=== PATIENT | female | born 1990 | race Caucasian/White ===

== ENCOUNTER 2017-01-16 23:20 | Emergency (ER) | payer BC ==
[2017-01-16 23:50] VITALS: BP 134/81
--- NOTE | 2017-01-17 00:03 | ED.ADGEN ---
Past History Past Medical History: Gallstones Adult General Chief Complaint Chief Complaint ".. I never get sick.. It started Tuesday night.. nausea and this pain in my stomach.. it seems to radiate to my back and Rt. 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 shoulder pain. Pt. denies intake of bad food. Patient denies any trauma. Patient denies any travel or specific ill contacts. Patient states she is normally healthy. No history of dark or tarry stools. No previous complaints of right upper quadrant pain. There is no family history of gallbladder disease. No hx. pancreatitis, or renal stones. Pt. describes pain as severe and radiates to her back and Rt. shoulder blade. Pt. has rebound to Rt. upper quadrant. Patient is 2 Term 2. Review of Systems Review of Systems Constitutional: Denies fever or chills [] Eyes: Denies change in visual acuity, redness, or eye pain [] HENT: Denies nasal congestion or sore throat [] Respiratory: Denies cough or shortness of breath [] Cardiovascular: No additional information not addressed in HPI [] GI: Complaints of epigastric abdominal pain, nausea, vomiting,. Denies bloody stools or diarrhea [] : Denies dysuria or hematuria [] Musculoskeletal: Denies back pain or joint pain [] Integument: Denies rash or skin lesions [] Neurologic: Denies headache, focal weakness or sensory changes [] Endocrine: Denies polyuria or polydipsia [] Family History Family History Noncontributory Current Medications Current Medications Current Medications Medications (Trade) Dose Ordered Sig/Araceli Start Time Stop Time Status Last Admin Dose Admin Ceftriaxone Sodium 1 gm/ Sodium Chloride 50 ml @ 100 mls/hr 1X ONCE 01/17/17 05:15 01/17/17 05:44 DC 01/17/17 05:10 100 MLS/HR Ceftriaxone Sodium (Rocephin) 1 gm STK-MED ONCE 01/17/17 05:15 01/17/17 05:16 DC Famotidine (Pepcid) 20 mg 1X ONCE 01/17/17 00:30 01/17/17 00:31 DC 01/17/17 00:29 20 MG Fentanyl Citrate (Fentanyl 2ml Vial) 100 mcg STK-MED ONCE 01/17/17 02:55 01/17/17 02:56 DC Fentanyl Citrate (Fentanyl 5ml Vial) 25 mcg 1X ONCE 01/17/17 05:15 01/17/17 05:16 DC Info (Do NOT chart on this entry -- for MONITORING) 1 each PRN DAILY PRN 01/17/17 00:30 01/19/17 00:29 Iohexol (Omnipaque 240 Mg/ml) 30 ml 1X ONCE 01/17/17 00:30 01/17/17 00:31 DC 01/17/17 02:14 30 ML Iohexol (Omnipaque 300 Mg/ml) 75 ml 1X ONCE 01/17/17 00:30 01/17/17 00:31 DC 01/17/17 02:14 75 ML Ketorolac Tromethamine (Toradol) 30 mg 1X ONCE 01/17/17 00:30 01/17/17 00:31 DC 01/17/17 00:28 30 MG Lactated Ringer's 1,000 ml @ 1,000 mls/hr Q1H 01/17/17 00:30 01/17/17 00:30 DC 01/17/17 00:28 1,000 MLS/HR Magnesium Hydroxide (Milk Of Magnesia) 2,400 mg 1X ONCE 01/17/17 03:00 01/17/17 03:14 DC Metronidazole 100 ml @ 200 mls/hr 1X ONCE 01/17/17 05:00 01/17/17 05:29 DC 01/17/17 05:00 200 MLS/HR Morphine Sulfate (Morphine 10mg Syringe) 10 mg 1X ONCE 01/17/17 02:15 01/17/17 03:14 DC 01/17/17 02:20 10 MG Ondansetron HCl (Zofran) 8 mg 1X ONCE 01/17/17 05:15 01/17/17 05:16 DC Sodium Chloride 50 ml @ As Directed STK-MED ONCE 01/17/17 05:15 01/17/17 05:16 DC See nursing for home meds Allergies Allergies Allergies Coded Allergies Type Severity Reaction Last Updated Verified No Known Drug Allergies 01/17/17 No No known drug allergies Physical Exam Physical Exam Constitutional: Well developed, well nourished, in moderate distress, non-toxic appearance. [] HENT: Normocephalic, atraumatic, bilateral external ears normal, oropharynx moist, no oral exudates, nose normal. [] Eyes: PERRLA, EOMI, conjunctiva normal, no discharge. [] Neck: Normal range of motion, no tenderness, supple, no stridor. [] Cardiovascular:Heart rate regular rhythm, no murmur [] Lungs & Thorax: Bilateral breath sounds clear to auscultation []Lt. breast scar - biopsy. Abdomen: Bowel sounds normal, soft, epigastric and right upper quadrant tenderness as per HPI. , no masses, no pulsatile masses Declines rectal and vaginal exam this time. Mild distention. Skin: Warm, dry, no erythema, no rash. [] Back: No tenderness, no CVA tenderness. [] Extremities: No tenderness, no cyanosis, no clubbing, ROM intact, no edema. No psoas or obturator sign Neurologic: Alert and oriented X 3, normal motor function, normal sensory function, no focal deficits noted. [] Psychologic: Affect anxious, judgement normal, mood normal. [] Current Patient Data Vital Signs Vital Signs Date Time Temp Pulse Resp B/P (MAP) Pulse Ox O2 Delivery O2 Flow Rate FiO2 01/17/17 02:20 24 01/16/17 23:50 97.3 68 97 Room Air Lab Results Laboratory Tests Test 01/16/17 23:31 01/17/17 00:04 Urine Collection Type Unknown Urine Color Yellow Urine Clarity Clear Urine pH 6.5 Urine Specific [place] 1.020 Urine Protein Neg (NEG-TRACE) Urine Glucose (UA) Neg mg/dL (NEG) Urine Ketones (Stick) Neg mg/dL (NEG) Urine Blood Neg (NEG) Urine Nitrite Neg (NEG) Urine Bilirubin Neg (NEG) Urine Urobilinogen Dipstick 0.2 mg/dL (0.2 mg/dL) Urine Leukocyte Esterase Neg (NEG) Urine RBC 0 /HPF (0-2) Urine WBC 1-4 /HPF (0-4) Urine Squamous Epithelial Cells Few /LPF Urine Bacteria Few /HPF (0-FEW) Urine Test Negative (NEG) Urine Opiates Screen Neg (NEG) Urine Methadone Screen Neg (NEG) Urine Barbiturates Neg (NEG) Urine Phencyclidine Screen Neg (NEG) Urine Amphetamine/Methamphetamine Neg (NEG) Urine Benzodiazepines Screen Neg (NEG) Urine Cocaine Screen Pos (NEG) Urine Cannabinoids Screen Pos (NEG) Urine Ethyl Alcohol Neg (NEG) White Blood Count 9.7 x10^3/uL (4.0-11.0) Red Blood Count 4.71 x10^6/uL (3.50-5.40) Hemoglobin 13.6 g/dL (12.0-15.5) Hematocrit 39.7 % (36.0-47.0) Mean Corpuscular Volume 84 fL (79-100) Mean Corpuscular Hemoglobin 29 pg (25-35) Mean Corpuscular Hemoglobin Concent 34 g/dL (31-37) Red Cell Distribution Width 13.6 % (11.5-14.5) Platelet Count 258 x10^3/uL (140-400) Neutrophils (%) (Auto) 59 % (31-73) Lymphocytes (%) (Auto) 33 % (24-48) Monocytes (%) (Auto) 6 % (0-9) Eosinophils (%) (Auto) 2 % (0-3) Basophils (%) (Auto) 1 % (0-3) Neutrophils # (Auto) 5.8 x10^3uL (1.8-7.7) Lymphocytes # (Auto) 3.2 x10^3/uL (1.0-4.8) Monocytes # (Auto) 0.5 x10^3/uL (0.0-1.1) Eosinophils # (Auto) 0.2 x10^3/uL (0.0-0.7) Basophils # (Auto) 0.1 x10^3/uL (0.0-0.2) Prothrombin Time 10.2 SEC (9.4-11.4) Prothrombin Time INR 1.0 (0.9-1.1) PTT 25 SEC (23-33) Sodium Level 140 mmol/L (136-145) Potassium Level 3.5 mmol/L (3.5-5.1) Chloride Level 104 mmol/L (98-107) Carbon Dioxide Level 26 mmol/L (21-32) Anion Gap 10 (6-14) Blood Urea Nitrogen 14 mg/dL (7-20) Creatinine 0.9 mg/dL (0.6-1.0) Estimated GFR (Cockcroft-Gault) 75.7 BUN/Creatinine Ratio 16 (6-20) Glucose Level 106 mg/dL (70-99) H Calcium Level 9.1 mg/dL (8.5-10.1) Total Bilirubin 0.5 mg/dL (0.2-1.0) Direct Bilirubin 0.1 mg/dL (0.0-0.2) Aspartate Amino Transferase (AST) 14 U/L (15-37) L Alanine Aminotransferase (ALT) 17 U/L (14-59) Alkaline Phosphatase 80 U/L (46-116) Troponin I Quantitative < 0.017 ng/mL (0-0.055) Total Protein 7.5 g/dL (6.4-8.2) Albumin 4.0 g/dL (3.4-5.0) Albumin/Globulin Ratio 1.1 (1.0-1.7) Lipase 144 U/L (73-393) EKG EKG My interpretation of EKG shows as sinus 61, some nonspecific contour changes in anterior septal area. But no findings of acute STEMI with contralateral changes.[] Radiology/Procedures Radiology/Procedures My interpretation of acute abdomen film shows no free air under the diaphragm. No acute cardiopulmonary findings. Increased stool. CT findings suggestive of thickened gallbladder wall. No findings acute appendicitis. Ultrasound shows thickened gallbladder wall with stones.[] Course & Med Decision Making Course & Med Decision Making Pertinent Labs and Imaging studies reviewed. (See chart for details). Discussed presentation, testing and treatment plan with Dr. Sands, and Dr. Hu- Will transfer to [facility]. Possible Cholecystectomy. [] Final Impression Final Impression 1. Abdomen pain 2. Nausea[] 3. Cholelithiasis and cholecystitis 4. Constipation 5. + Cocaine and MJ urine screen Problems: Dragon Disclaimer Dragon Disclaimer This electronic medical record was generated, in whole or in part, using a voice recognition dictation system. AUBREY PARHAM MD Jan 17, 2017 00:03
[2017-01-17] MEDS ORDERED: FAMOTIDINE 20 MG/2 ML VIAL IVP ONE (00:30)
[2017-01-17] MEDS ORDERED: ONDANSETRON PF 4 MG/2 ML VIAL. IV ONE ×2 (00:30→05:15)
[2017-01-17] MEDS ORDERED: IOHEXOL 240 MG/ML 50ML VIAL. PO ONE (00:30)
[2017-01-17] MEDS ORDERED: KETOROLAC 30 MG/ML VIAL. IV ONE (00:30)
[2017-01-17] MEDS ORDERED: IOHEXOL 300 MG/ML 75 ML VIAL. IV ONE (00:30)
[2017-01-17] MEDS ORDERED: CONTRAST GIVEN MC PRN (00:30)
[2017-01-17] MEDS ORDERED: IV RINGERS SOLUTION,LACTATED 1,000 ML IV SCH (00:30)
[2017-01-17 00:34] LABS: BASO # 0.1 x10^3/uL (0.0-0.2); BASO % 1 % (0-3); EOS # 0.2 x10^3/uL (0.0-0.7); EOS % 2 % (0-3); HEMATOCRIT 39.7 % (36.0-47.0); HEMOGLOBIN 13.6 g/dL (12.0-15.5); LYMPH # 3.2 x10^3/uL (1.0-4.8); LYMPH % 33 % (24-48); MEAN CORPUSCULAR HEMOGLOBIN 29 pg (25-35); MEAN CORPUSCULAR HGB CONC 34 g/dL (31-37); MEAN CORPUSCULAR VOLUME 84 fL (79-100); MONO # 0.5 x10^3/uL (0.0-1.1); MONO % 6 % (0-9); NEUT # 5.8 x10^3uL (1.8-7.7); NEUT % 59 % (31-73); PLATELET COUNT 258 x10^3/uL (140-400); RED BLOOD COUNT 4.71 x10^6/uL (3.50-5.40); RED CELL DISTRIBUTION WIDTH 13.6 % (11.5-14.5); WHITE BLOOD COUNT 9.7 x10^3/uL (4.0-11.0)
[2017-01-17 01:00] LABS: BACTERIA,URINE FEW /HPF (0-FEW); BILIRUBIN,URINE NEG (NEG); CLARITY,URINE CLEAR; COLOR,URINE YELLOW; GLUCOSE,URINE NEG (NEG); NITRITE,URINE NEG (NEG); RBC,URINE 0 /HPF (0-2); SQUAMOUS EPITHELIAL CELL,UR FEW /LPF; UROBILINOGEN,URINE 0.2 mg/dL (0.2 mg/dL)
[2017-01-17 01:01] LABS: U PREG PATIENT NEGATIVE (NEG)
[2017-01-17 01:39] LABS: BARBITURATES NEG (NEG); BENZODIAZEPINES NEG (NEG); CANNABINOIDS POS (NEG); COCAINE POS (NEG); METHADONE NEG (NEG); OPIATES NEG (NEG); PHENCYCLIDINE NEG (NEG)
[2017-01-17 01:44] LABS: AMPHETAMINE/METHAMPHETAMINE NEG (NEG)
[2017-01-17 01:47] LABS: ALBUMIN/GLOBULIN RATIO 1.1 (1.0-1.7); CALCIUM 9.1 mg/dL (8.5-10.1); CREATININE 0.9 mg/dL (0.6-1.0); DIRECT BILIRUBIN 0.1 mg/dL (0.0-0.2); GFR 75.7; POTASSIUM 3.5 mmol/L (3.5-5.1); TOTAL BILIRUBIN 0.5 mg/dL (0.2-1.0); TOTAL PROTEIN 7.5 g/dL (6.4-8.2)
[2017-01-17] MEDS ORDERED: MORPHINE SULFATE 10 MG/ML SYRINGE. SQ ONE (02:15)
[2017-01-17] MEDS ORDERED: fentaNYL PF 100 MCG/2 ML VIAL ONE (02:55)
[2017-01-17] MEDS ORDERED: MAGNESIUM HYDROXIDE 2,400 MG/30 ML ORAL.SUSP. PO ONE (03:00)
--- NOTE | 2017-01-17 03:15 | RAD ---
INDICATION: [id number] Omni 300 75cc: Abdomen pain with nausea and vomiting x 2 days. No priors. COMPARISON: None. TECHNIQUE: Axial CT images were obtained through the abdomen and pelvis with intravenous contrast. One or more of the following individualized dose reduction techniques were utilized for this examination: 1. Automated exposure control; 2. Adjustment of the mA and/or kV according to patient size; 3. Use of iterative reconstruction technique. FINDINGS: Chest Base: Partially imaged without gross abnormality. Vessels: No abdominal aortic aneurysm. Liver/Biliary: Mild periportal edema. Pancreas: No peripancreatic edema. Spleen: Normal. Kidneys/Adrenal: Mildly prominent right extrarenal pelvis without definite radiopaque obstructive ureter stone. There is some distention of the right ureter. No left-sided hydronephrosis. Bladder: No definite adjacent inflammation. GI: No free air. No bowel dilation to suggest obstruction. Intrauterine device is seen with tip in the lower uterine segment. The appendix does not appear grossly inflamed. IMPRESSION: 1. No evidence of bowel obstruction or appendicitis. 2. Mild pericholecystic edema. Could be related to hydration status but would correlate with symptoms within the region to ensure that there is not a pathologic cause such as biliary or hepatic disease. 3. Mild distention of the right renal pelvis as well as portion of the right ureter without a radiopaque obstructive right ureter stone seen. Electronically signed by: Cortez Garcia MD (01/17/2017 3:13 AM) [facility]
--- NOTE | 2017-01-17 04:44 | RAD ---
INDICATION : RUQ PAIN COMPARISON: CT from earlier same day TECHNIQUE: Multiple ultrasound images obtained through the abdomen in grayscale and color. FINDINGS: Liver: Echotexture within normal limits in visualized portions of liver. Gallbladder: Gallstones are visualized. Gallbladder wall measures up to 5 mm. IVC: Partially distended at level of liver. Common Bile Duct: Not dilated. Pancreas: Only partially seen secondary to bowel gas obscuring. Right Kidney: No hydronephrosis. IMPRESSION: 1. Gallstones are identified without common bile duct dilation. The gallbladder wall appears normal in thickness in some regions and mildly thickened in other regions. Differential considerations include regions of contraction, reactive to adjacent hepatic disease, systemic process such as hypoproteinemia or primary gallbladder inflammation. If there is clinical concern for cholecystitis it may be helpful to obtain a nuclear hepatobiliary scan to further evaluate given these findings. Electronically signed by: Cortez Garcia MD (01/17/2017 4:40 AM) [facility]
[2017-01-17] MEDS ORDERED: IV NORMAL SALINE 50ML 50 ML ONE (05:15)
[2017-01-17] MEDS ORDERED: cefTRIAXone SODIUM 1 GM VIAL IV ONE (05:15)
[2017-01-17] MEDS ORDERED: fentaNYL PF 250 MCG/5 ML VIAL IV ONE (05:15)
--- NOTE | 2017-01-17 07:49 | RAD ---
Acute abdomen series, 3 views, 01/17/2017: History: Abdominal pain, nausea and vomiting There is increased stool in the colon. The abdominal gas pattern is otherwise unremarkable. No free air seen in the abdomen. There is no evidence of organomegaly. An IUD is projected over the pelvis near the midline. A lower pelvic calcification on the right is probably a phlebolith. The heart size is normal. The lungs are clear. There is no evidence of pleural fluid. IMPRESSION: 1. An IUD is in place. 2. Increased stool in the colon.
--- NOTE | 2017-01-18 07:14 | EKG ---
[address] [address] Test Date: 2017-01-17 Test Time: 05:02:30 Pat Name: ANDREW SIMEON Department: Room: Gender: F Animal Assistant: : 1990 Requested By: AUBREY PARHAM Order Number: [id number] Reading MD: Ant Hernandez Measurements Intervals [place] Rate: 61 P: 0 [place]: 124 QRS: 32 QRSD: 74 T: 18 QT: 406 QTc: 410 Interpretive Statements SINUS RHYTHM Electronically Signed On 01-24-2017 10:01:38 CDT by Ant Hernandez
== END 2017-01-17 06:06 | disposition home or self-care (01) ==
LOC: ER 23:20
DX: K80.10 Calculus of gallbladder with chronic cholecystitis without obstruction (principal); K59.00 Constipation, unspecified; F14.10 Cocaine abuse, uncomplicated; F12.10 Cannabis abuse, uncomplicated
CPT/HCPCS: 36415; 74022; 74177; 76705; 80053; 80076; 80307; 81001; 81025; 83690; 84484; 85025; 85610; 85730; 93005; 96361; 96365; 96368; 96372; 96375; 96376; 99285; J0696; J1885; J2270; J2405; J3490; J7120; Q9966; Q9967; S0028; G0479

== ENCOUNTER 2017-02-08 22:30 | Emergency (ER) | payer BC ==
--- NOTE | 2017-02-08 23:14 | PHYS DOC ---
Past History Past Medical History: Gallstones Past Surgical History: No Surgical History Alcohol Use: None Drug Use: None Adult General Chief Complaint Chief Complaint: ABDOMINAL PAIN HPI HPI Patient is a 26 year old female who presents with epigastric pain sharp stabbing in nature and radiates her back. She states is the exact same pain she had before she had her gallbladder removed by Dr. Sands 1 month ago. She states tonight she ate baked chicken and drank a bourbon and Coke about one hour after eating developed the same exact pain. She states she felt nauseated and the pain was a 9 out 10. Review of Systems Review of Systems Constitutional: Denies fever or chills [] Eyes: Denies change in visual acuity, redness, or eye pain [] HENT: Denies nasal congestion or sore throat [] Respiratory: Denies cough or shortness of breath [] Cardiovascular: No additional information not addressed in HPI [] GI: Positive for abdominal pain, nausea, denies any vomiting, bloody stools or diarrhea [] : Denies dysuria or hematuria [] Musculoskeletal: Denies back pain or joint pain [] Integument: Denies rash or skin lesions [] Neurologic: Denies headache, focal weakness or sensory changes [] Endocrine: Denies polyuria or polydipsia [] Allergies Allergies Allergies Coded Allergies Type Severity Reaction Last Updated Verified No Known Drug Allergies 01/17/17 No Physical Exam Physical Exam Constitutional: Well developed, well nourished, no acute distress, non-toxic appearance. [] HENT: Normocephalic, atraumatic, bilateral external ears normal, oropharynx moist, no oral exudates, nose normal. [] Eyes: PERRLA, EOMI, conjunctiva normal, no discharge. [] Neck: Normal range of motion, no tenderness, supple, no stridor. [] Cardiovascular:Heart rate regular rhythm, no murmur [] Lungs & Thorax: Bilateral breath sounds clear to auscultation [] Abdomen: Bowel sounds normal, soft, palpation epigastric area without any rebound or guarding, no masses, no pulsatile masses. Well-healed laparoscopic incision scars without any erythema or tenderness over the scars Skin: Warm, dry, no erythema, no rash. [] Back: No tenderness, no CVA tenderness. [] Extremities: No tenderness, no cyanosis, no clubbing, ROM intact, no edema. [] Neurologic: Alert and oriented X 3, normal motor function, normal sensory function, no focal deficits noted. [] Psychologic: Affect normal, judgement normal, mood normal. [] EKG EKG [] Radiology/Procedures Radiology/Procedures [] Impressions: Epigastric abdominal pain Course & Med Decision Making Course & Med Decision Making Pertinent Labs and Imaging studies reviewed. (See chart for details) She received a GI cocktail and her pain went from a 9 down to a 2. I suspect this is likely epigastric pain from gastritis or another process. We'll recommend her being discharged home with [id number] Pepcid or Zantac. I spoke with Dr. Rooney who is on-call for Dr. Sands who recommends patient follow up as an outpatient. Patient is agreeable plan is being discharged in stable condition this time. Dragon Disclaimer Dragon Disclaimer This chart was dictated in whole or in part using Voice Recognition software in a busy, high-work load, and often noisy Emergency Department environment. It may contain unintended and wholly unrecognized errors or omissions. Departure Departure: Impression: Primary Impression: Epigastric pain Disposition: HOME, SELF-CARE Condition: STABLE Referrals: PCP,NO (PCP) Patient Instructions: Abdominal Pain Additional Instructions: Your labs do not show any acute abnormality's. Your pain was in the epigastric area. Your pain resolved with a GI cocktail which consisted Tylenol, Maalox, lidocaine. I suspect her pain is likely due to gastritis or an inflammation of your stomach or esophagus. You can start taking Pepcid or Zantac that you can purchase [id number] as an acid catrachita. You should follow-up with your primary care physician within the next week. Return ER for severe pain, uncontrolled nausea vomiting, or other concerns. You should likely avoid alcohol until your stomach is fully healed. I spoke with Dr. Rooney who is covering for Dr Sands; he wants you to follow-up with Dr. Sands. Please call Dr. Sands's office and schedule another follow-up appointment. HYUN BANG MD Feb 08, 2017 23:14
[2017-02-08] MEDS ORDERED: MORPHINE SULFATE 4 MG/ML DISP.SYRIN. IV/SQ PRN (23:15)
[2017-02-08] MEDS ORDERED: IV NORMAL SALINE 1,000ML 1,000 ML IV SCH (23:30)
[2017-02-08] MEDS ORDERED: ONDANSETRON PF 4 MG/2 ML VIAL. IV ONE (23:30)
[2017-02-08 23:31] LABS: BASO % 0 % (0-3); EOS # 0.2 x10^3/uL (0.0-0.7); EOS % 3 % (0-3); HEMATOCRIT 39.1 % (36.0-47.0); HEMOGLOBIN 13.4 g/dL (12.0-15.5); LYMPH # 2.4 x10^3/uL (1.0-4.8); LYMPH % 36 % (24-48); MEAN CORPUSCULAR HEMOGLOBIN 29 pg (25-35); MEAN CORPUSCULAR HGB CONC 34 g/dL (31-37); MEAN CORPUSCULAR VOLUME 84 fL (79-100); MONO # 0.4 x10^3/uL (0.0-1.1); MONO % 6 % (0-9); NEUT # 3.6 x10^3uL (1.8-7.7); NEUT % 55 % (31-73); PLATELET COUNT 274 x10^3/uL (140-400); RED BLOOD COUNT 4.67 x10^6/uL (3.50-5.40); RED CELL DISTRIBUTION WIDTH 13.3 % (11.5-14.5); WHITE BLOOD COUNT 6.6 x10^3/uL (4.0-11.0)
[2017-02-08 23:38] LABS: BACTERIA,URINE FEW /HPF (0-FEW); BILIRUBIN,URINE NEG (NEG); CLARITY,URINE CLEAR; COLOR,URINE YELLOW; GLUCOSE,URINE NEG (NEG); NITRITE,URINE NEG (NEG); RBC,URINE 0 /HPF (0-2); SQUAMOUS EPITHELIAL CELL,UR FEW /LPF; UROBILINOGEN,URINE 0.2 mg/dL (0.2 mg/dL); WBC,URINE OCC /HPF (0-4)
[2017-02-08 23:55] LABS: ALBUMIN 3.9 g/dL (3.4-5.0); ALK PHOS 86 U/L (46-116); ALT (SGPT) 55 U/L (14-59); ANION GAP 9 (6-14); AST (SGOT) 45 U/L (15-37); BLOOD UREA NITROGEN 11 mg/dL (7-20); CALCIUM 8.5 mg/dL (8.5-10.1); CARBON DIOXIDE 28 mmol/L (21-32); CHLORIDE 104 mmol/L (98-107); CREATINE KINASE 133 U/L (26-192); CREATININE 0.7 mg/dL (0.6-1.0); DIRECT BILIRUBIN 0.1 mg/dL (0.0-0.2); GFR 101.1; GLUCOSE 93 mg/dL (70-99); LIPASE 140 U/L (73-393); POTASSIUM 3.3 mmol/L (3.5-5.1); SODIUM 141 mmol/L (136-145); TOTAL BILIRUBIN 0.3 mg/dL (0.2-1.0); TOTAL PROTEIN 7.6 g/dL (6.4-8.2)
[2017-02-09] MEDS ORDERED: LIDO:MAALOX 1:1 20 ML SINGLE DOSE PO ONE (00:45)
[2017-02-09 01:30] VITALS: BP 103/56
[2017-02-09] MEDS ORDERED: FAMOTIDINE 20 MG TABLET PO ONE (01:30)
== END 2017-02-09 01:35 | disposition home or self-care (01) ==
LOC: ER 22:30
DX: R11.0 Nausea (principal); R10.13 Epigastric pain
CPT/HCPCS: 36415; 80048; 80076; 81001; 82553; 83690; 85025; 96361; 96374; 96375; 99284; J2270; J2405; J7030

== ENCOUNTER 2017-04-09 15:19 | Emergency (ER) | payer BC ==
[2017-04-09 15:23] VITALS: BP 103/56
[2017-04-09] MEDS ORDERED: ONDANSETRON PF 4 MG/2 ML VIAL. IV ONE (16:30)
[2017-04-09 16:42] LABS: BASO % 0 % (0-3); EOS # 0.1 x10^3/uL (0.0-0.7); EOS % 1 % (0-3); HEMATOCRIT 41.8 % (36.0-47.0); HEMOGLOBIN 14.3 g/dL (12.0-15.5); LYMPH # 0.9 x10^3/uL (1.0-4.8); LYMPH % 6 % (24-48); MEAN CORPUSCULAR HEMOGLOBIN 29 pg (25-35); MEAN CORPUSCULAR HGB CONC 34 g/dL (31-37); MEAN CORPUSCULAR VOLUME 85 fL (79-100); MONO # 0.5 x10^3/uL (0.0-1.1); MONO % 3 % (0-9); NEUT # 13.3 x10^3uL (1.8-7.7); NEUT % 90 % (31-73); PLATELET COUNT 245 x10^3/uL (140-400); RED CELL DISTRIBUTION WIDTH 14.2 % (11.5-14.5); WHITE BLOOD COUNT 14.8 x10^3/uL (4.0-11.0)
[2017-04-09 16:47] LABS: ALBUMIN/GLOBULIN RATIO 1.1 (1.0-1.7); CALCIUM 8.8 mg/dL (8.5-10.1); CREATININE 0.6 mg/dL (0.6-1.0); GFR 120.8; POTASSIUM 3.4 mmol/L (3.5-5.1); TOTAL BILIRUBIN 1.3 mg/dL (0.2-1.0); TOTAL PROTEIN 7.8 g/dL (6.4-8.2)
[2017-04-09] MEDS ORDERED: ONDA4TAB10 SL (18:22)
[2017-04-09] MEDS ORDERED: ACET-704 PO (18:22)
--- NOTE | 2017-04-09 18:22 | PHYS DOC ---
Past History Past Medical History: Gallstones Past Surgical History: Cholecystectomy Alcohol Use: None Drug Use: None Adult General Chief Complaint Chief Complaint: ABDOMINAL PAIN HPI HPI Patient is a [26] year old [female] who presents with [abdominal pain] 26-year-old patient with history of laparoscopic cholecystectomy in January 2017 complaining of right upper quadrant pain as a sharp pain with radiation to the back and associated with nausea and 2 episodes of vomiting that started 1 hours after eating this afternoon as a constant pain and ataxia pain 8/ ..patient states she had the same pain before her surgery and once after her surgery without special diagnosis. Review of Systems Review of Systems Constitutional: Denies fever or chills [] Eyes: Denies change in visual acuity, redness, or eye pain [] HENT: Denies nasal congestion or sore throat [] Respiratory: Denies cough or shortness of breath [] Cardiovascular: No additional information not addressed in HPI [] GI: Reports abdominal pain, nausea, vomiting : Denies dysuria or hematuria [] Musculoskeletal: Denies back pain or joint pain [] Integument: Denies rash or skin lesions [] Neurologic: Denies headache, focal weakness or sensory changes [] Endocrine: Denies polyuria or polydipsia [] All other systems were reviewed and found to be within normal limits, except as documented in this note. Current Medications Current Medications Current Medications Medications (Trade) Dose Ordered Sig/Araceli Start Time Stop Time Status Last Admin Dose Admin Fentanyl Citrate (Fentanyl 2ml Vial) 50 mcg 1X ONCE 04/09/17 16:30 04/09/17 16:31 DC 04/09/17 16:32 50 MCG Ondansetron HCl (Zofran) 4 mg 1X ONCE 04/09/17 16:30 04/09/17 16:31 DC 04/09/17 16:31 4 MG Allergies Allergies Allergies Coded Allergies Type Severity Reaction Last Updated Verified No Known Drug Allergies 01/17/17 No Physical Exam Physical Exam Constitutional: Well developed, well nourished, moderate distress, non-toxic appearance. [] HENT: Normocephalic, atraumatic, bilateral external ears normal, oropharynx moist, no oral exudates, nose normal. [] Eyes: PERRLA, EOMI, conjunctiva normal, no discharge. [] Neck: Normal range of motion, no tenderness, supple, no stridor. [] Cardiovascular:Heart rate regular rhythm, no murmur [] Lungs & Thorax: Bilateral breath sounds clear to auscultation [] Abdomen: Bowel sounds normal, soft, mild tenderness in RUQ, no masses, no pulsatile masses. [] Skin: Warm, dry, no erythema, no rash. [] Back: No tenderness, no CVA tenderness. [] Extremities: No tenderness, no cyanosis, no clubbing, ROM intact, no edema. [] Neurologic: Alert and oriented X 3, normal motor function, normal sensory function, no focal deficits noted. [] Psychologic: Affect normal, judgement normal, mood normal. [] Current Patient Data Vital Signs Vital Signs Date Time Temp Pulse Resp B/P (MAP) Pulse Ox O2 Delivery O2 Flow Rate FiO2 04/09/17 17:14 16 100 04/09/17 15:23 98.3 100 Room Air Lab Results Laboratory Tests Test 04/09/17 16:11 White Blood Count 14.8 x10^3/uL (4.0-11.0) H Red Blood Count 4.90 x10^6/uL (3.50-5.40) Hemoglobin 14.3 g/dL (12.0-15.5) Hematocrit 41.8 % (36.0-47.0) Mean Corpuscular Volume 85 fL (79-100) Mean Corpuscular Hemoglobin 29 pg (25-35) Mean Corpuscular Hemoglobin Concent 34 g/dL (31-37) Red Cell Distribution Width 14.2 % (11.5-14.5) Platelet Count 245 x10^3/uL (140-400) Neutrophils (%) (Auto) 90 % (31-73) H Lymphocytes (%) (Auto) 6 % (24-48) L Monocytes (%) (Auto) 3 % (0-9) Eosinophils (%) (Auto) 1 % (0-3) Basophils (%) (Auto) 0 % (0-3) Neutrophils # (Auto) 13.3 x10^3uL (1.8-7.7) H Lymphocytes # (Auto) 0.9 x10^3/uL (1.0-4.8) L Monocytes # (Auto) 0.5 x10^3/uL (0.0-1.1) Eosinophils # (Auto) 0.1 x10^3/uL (0.0-0.7) Basophils # (Auto) 0.0 x10^3/uL (0.0-0.2) Sodium Level 140 mmol/L (136-145) Potassium Level 3.4 mmol/L (3.5-5.1) L Chloride Level 104 mmol/L (98-107) Carbon Dioxide Level 24 mmol/L (21-32) Anion Gap 12 (6-14) Blood Urea Nitrogen 16 mg/dL (7-20) Creatinine 0.6 mg/dL (0.6-1.0) Estimated GFR (Cockcroft-Gault) 120.8 BUN/Creatinine Ratio 27 (6-20) H Glucose Level 96 mg/dL (70-99) Calcium Level 8.8 mg/dL (8.5-10.1) Total Bilirubin 1.3 mg/dL (0.2-1.0) H Aspartate Amino Transferase (AST) 97 U/L (15-37) H Alanine Aminotransferase (ALT) 53 U/L (14-59) Alkaline Phosphatase 92 U/L (46-116) Total Protein 7.8 g/dL (6.4-8.2) Albumin 4.0 g/dL (3.4-5.0) Albumin/Globulin Ratio 1.1 (1.0-1.7) EKG EKG [] Radiology/Procedures Radiology/Procedures [] Course & Med Decision Making Course & Med Decision Making Pertinent Labs reviewed. (See chart for details) Evaluation of the patient showed 26-year-old patient with episodes of right upper quadrant pain after recent cholecystectomy.] Patient for definitive treatment is IV fluids and Zofran and fentanyl. was unremarkable and patient instructed to follow up with her surgeon for possible referral to GI specialist for possible common bile duct retained stone. Dragon Disclaimer Dragon Disclaimer This electronic medical record was generated, in whole or in part, using a voice recognition dictation system. Departure Departure: Impression: Primary Impression: Right upper quadrant abdominal pain Disposition: HOME, SELF-CARE (At 1820) Condition: IMPROVED Referrals: PCP,NO (PCP) Patient Instructions: Abdominal Pain, Biliary Colic Additional Instructions: Follow-up with your physician in 2-3 days for referral to GI specialist for more evaluation of liver and common bile duct Scripts Acetaminophen With Codeine (TYLENOL WITH CODEINE #3 TABLET) 1 Each Tablet 1 TAB PO Q6HRS, #30 TAB Prov: NADINE TRAVIS MD 04/09/17 Ondansetron (ZOFRAN ODT) 4 Mg Tab.rapdis 1 TAB SL Q8HRS, #15 TAB Prov: NADINE TRAVIS MD 04/09/17 NADINE TRAVIS MD Apr 09, 2017 18:22
[2017-04-09] MEDS ORDERED: ACETAMINOPHEN/CODEINE 300/30MG 4TABLET STARTPACK. PO ONE (18:45)
== END 2017-04-09 19:00 | disposition home or self-care (01) ==
LOC: ER 15:19
DX: R10.11 Right upper quadrant pain (principal); R11.2 Nausea with vomiting, unspecified; R27.0 Ataxia, unspecified; Z90.49 Acquired absence of other specified parts of digestive tract
CPT/HCPCS: 36415; 80053; 85025; 96374; 96375; 99284; J2405; J3010

== ENCOUNTER 2018-03-27 19:24 | Emergency (ER) | payer BC ==
[~2018-03-27] VITALS: Ht 165.1 cm; Wt 70.3 kg
[~2018-03-27 19:24] MED LIST: ACET-704 PO; ONDA4TAB10 SL
[2018-03-27 19:34] VITALS: BP 124/87
[2018-03-27] MEDS ORDERED: AMOX1TAB61 PO (20:04)
[2018-03-27] MEDS ORDERED: PRED20TA PO (20:04)
--- NOTE | 2018-03-27 20:06 | PHYS DOC ---
Adult General Chief Complaint Chief Complaint Sore throat HPI HPI 27 years old female presented to the emergency department with a sore throat on the right side she was seen and evaluated the the serious [facility] advised to come to the emergency department for possible abscess patient denies any fever no chills no neck pain no headache Review of Systems Review of Systems Constitutional: Denies fever or chills [] Eyes: Denies change in visual acuity, redness, or eye pain [] HENT: Denies nasal congestion or sore throat [] Respiratory: Denies cough or shortness of breath [] Cardiovascular: No additional information not addressed in HPI [] GI: Denies abdominal pain, nausea, vomiting, bloody stools or diarrhea [] : Denies dysuria or hematuria [] Musculoskeletal: Denies back pain or joint pain [] Integument: Denies rash or skin lesions [] Neurologic: Denies headache, focal weakness or sensory changes [] Endocrine: Denies polyuria or polydipsia [] All other systems were reviewed and found to be within normal limits, except as documented in this note. Allergies Allergies Allergies Coded Allergies Type Severity Reaction Last Updated Verified No Known Drug Allergies 01/17/17 No Physical Exam Physical Exam Constitutional: Well developed, well nourished, no acute distress, non-toxic appearance. [] HENT: Normocephalic, atraumatic, bilateral external ears normal, pharyngeal erythema the pus on the right side, no oral exudates, nose normal. [] Eyes: PERRLA, EOMI, conjunctiva normal, no discharge. [] Neck: Normal range of motion, no tenderness, supple, no stridor. [] Cardiovascular:Heart rate regular rhythm, no murmur [] Lungs & Thorax: Bilateral breath sounds clear to auscultation [] Abdomen: Bowel sounds normal, soft, no tenderness, no masses, no pulsatile masses. [] Skin: Warm, dry, no erythema, no rash. [] Back: No tenderness, no CVA tenderness. [] Extremities: No tenderness, no cyanosis, no clubbing, ROM intact, no edema. [] Neurologic: Alert and oriented X 3, normal motor function, normal sensory function, no focal deficits noted. [] Psychologic: Affect normal, judgement normal, mood normal. [] Current Patient Data Vital Signs Vital Signs Date Time Temp Pulse Resp B/P (MAP) Pulse Ox O2 Delivery O2 Flow Rate FiO2 03/27/18 19:34 98.9 100 20 98 EKG EKG [] Radiology/Procedures Radiology/Procedures [] Course & Med Decision Making Course & Med Decision Making Pertinent Labs and Imaging studies reviewed. (See chart for details) [] Final Impression Final Impression [] Problems: (1) Pharyngitis Qualifiers: Qualified Codes: J02.0 - Streptococcal pharyngitis Dragon Disclaimer Dragon Disclaimer This electronic medical record was generated, in whole or in part, using a voice recognition dictation system. MAUREEN HUTCHINSON MD Mar 27, 2018 20:06
[2018-03-27] MEDS ORDERED: cefTRIAXone IM 1 GM VIAL IM ONE (20:15)
[2018-03-27] MEDS ORDERED: predniSONE 20 MG TABLET PO ONE (20:15)
== END 2018-03-27 21:03 | disposition home or self-care (01) ==
LOC: ER 19:24
DX: J02.0 Streptococcal pharyngitis (principal); B95.5 Unspecified streptococcus as the cause of diseases classified elsewhere
CPT/HCPCS: 96372; 99283; J0696; J7512

== ENCOUNTER 2021-05-04 13:36 | Emergency (ER) | payer BC ==
[~2021-05-04 13:36] MED LIST changes: +AMOX1TAB61 PO; +PRED20TA PO
== END 2021-05-04 15:20 | disposition left against medical advice (07) ==
LOC: ER 13:36
DX: R11.10 Vomiting, unspecified (principal); R19.7 Diarrhea, unspecified; R12 Heartburn; Z53.21 Procedure and treatment not carried out due to patient leaving prior to being seen by health care provider